=== PATIENT | female | born 1990 | race Caucasian/White ===

== ENCOUNTER → 2017-04-12 | Outpatient (CLI) | payer BC | END | disposition home or self-care (01) | LOC: LAB 12:17 | DX: Z11.3 Encounter for screening for infections with a predominantly sexual mode of transmission (principal) ==

== ENCOUNTER → 2017-07-06 | Outpatient (CLI) | payer BC | END | disposition home or self-care (01) | LOC: LAB 16:51 | DX: A60.00 Herpesviral infection of urogenital system, unspecified (principal) ==

== ENCOUNTER 2018-04-20 13:15 | Outpatient (CLI) | payer BC | END 2018-04-20 13:24 | disposition home or self-care (01) | LOC: LAB 13:15 | DX: R10.2 Pelvic and perineal pain (principal); B20 Human immunodeficiency virus [HIV] disease; N60.99 Unspecified benign mammary dysplasia of unspecified breast; Z11.4 Encounter for screening for human immunodeficiency virus [HIV] ==